=== PATIENT | female | born 1965 | race African-American/Black ===

== ENCOUNTER 2024-03-31 23:08 | Emergency (ER) | payer MEDICAID ==
[~2024-03-31] VITALS: Ht 165.1 cm; Wt 86.0 kg
[2024-03-31 23:19] VITALS: O2SAT 100
[2024-03-31] MEDS ORDERED: LIDOCAINE 5% PATCH TOP SCH (23:30)
[2024-03-31] MEDS ORDERED: KETOROLAC 60MG/2ML VIAL IM ONE (23:30)
[2024-04-01] MEDS ORDERED: BACL-141 MT (01:48)
[2024-04-01] MEDS ORDERED: NAPR275T96 MT (01:48)
[2024-04-01] MEDS: KETOROLAC 30MG/ML VIAL IM NR (02:30)
[2024-04-01] MEDS ORDERED: KETOROLAC 60MG/2ML VIAL IM NR (02:30)
[2024-04-01 02:39] VITALS: BP 148/75; PULSE 80; RESP 18; TEMP 98.2
== END 2024-04-01 02:30 | disposition home or self-care (01) ==
LOC: ER 23:08
DX: G89.29 Other chronic pain (principal); M54.89 Other dorsalgia; I10 Essential (primary) hypertension; E11.9 Type 2 diabetes mellitus without complications; Z85.3 Personal history of malignant neoplasm of breast; Z88.6 Allergy status to analgesic agent; Z88.5 Allergy status to narcotic agent
CPT/HCPCS: 99285; 72128; 96372; J1885

== ENCOUNTER 2024-04-19 08:27 | Emergency (ER) | payer MEDICAID ==
[~2024-04-19] VITALS: Ht 172.7 cm; Wt 90.0 kg
[~2024-04-19 08:27] MED LIST: BACL-141 MT; NAPR275T96 MT
[2024-04-19 08:29] VITALS: O2SAT 99
[2024-04-19] MEDS: IBUPROFEN 400MG TABLET PO ONE (09:37)
[2024-04-19] MEDS ORDERED: TOPUD PO (09:57)
[2024-04-19 10:14] VITALS: BP 138/88; PULSE 68; RESP 16; TEMP 98.2
== END 2024-04-19 10:57 | disposition home or self-care (01) ==
LOC: ER 08:27
DX: M79.18 Myalgia, other site (principal); E11.9 Type 2 diabetes mellitus without complications; I10 Essential (primary) hypertension; Z88.6 Allergy status to analgesic agent; Z88.5 Allergy status to narcotic agent
CPT/HCPCS: 73502; 81025; 99284